=== PATIENT | male | born 1980 | race African-American/Black ===

== ENCOUNTER 2024-09-02 09:18 | Outpatient (CLI) | payer OTHER, SELFPAY ==
--- NOTE | ~2024-09-02 | MR_ITS ---
MRI of the lumbar spine Clinical History: Right leg pain Technique: Axial T2-weighted images, and sagittal T1-weighted, T2-weighted, and T2 fat-sat images wer e acquired. Findings: There is no fracture or subluxation of the lumbar spine. Vertebral bodies maintain normal h eight and alignment. No bone marrow signal abnormalities seen. At L1-L2, L2-L3, L3-L4, L4-L5, there is no disc bulge or herniation. There is moderate to advanced fa cet arthropathy at these levels. There is mild bilateral neural foraminal narrowing at L3-L4 and L4-L 5. No arianne canal stenosis at these levels. At L5-S1, there is broad-based disc protrusion centrally extending to the right paracentral region. T here is mild right neural foraminal narrowing. Suspected impingement of descending right S1-S2 level nerve root by the disc protrusion. No arianne canal stenosis. Paravertebral soft tissues are unremarkable. Impression: Broad-based disc protrusion at L5-S1, with suspected impingement of the descending right S1-S2 level nerve root. Reviewed, dictated and finalized at location M. Impression: Broad-based disc protrusion at L5-S1, with suspected impingement of the descend ing right S1-S2 level nerve root.
--- NOTE | ~2024-09-02 | XR_ITS ---
EXAMINATION: XR lumbar spine min 4V DATE: 09/02/2024 10:15 INDICATION: Low back pain. Right leg pain. TECHNIQUE: 5 views of lumbar spine including standing views and flexion and extension views were obta ined. COMPARISON: None. FINDINGS: There is 8 degrees dextrocurvature of lumbar spine. Vertebral body heights are normal. Ther e is mildly decreased disc height at L1-L2 and L2-L3. There is no abnormal motion with flexion or ext ension. There is multilevel mild facet joint osteoarthritis. IMPRESSION: 1. Mild lumbar spondylosis. Reviewed, dictated and finalized at location B. IMPRESSION: 1. Mild lumbar spondylosis.
== END 2024-09-02 09:19 | disposition home or self-care (01) ==
LOC: MICIMG 09:21
PROVIDERS: PCP Neurological Surgery; Visit Provider Neurological Surgery
DX: M47.816 Spondylosis without myelopathy or radiculopathy, lumbar region (principal); M51.27 Other intervertebral disc displacement, lumbosacral region; M79.604 Pain in right leg
CPT/HCPCS: 72110; 72148